=== PATIENT | male | born 2005 | race Caucasian/White ===

== ENCOUNTER 2025-05-24 10:44 | Emergency (ER) | payer OTHER, SELFPAY ==
[2025-05-24] MEDS ORDERED: Lidocaine 1% (PF) 30 ML VIAL ONE (11:32)
[2025-05-24] MEDS ORDERED: Bacitracin 1 PK ONE (12:54)
== END 2025-05-24 13:00 | disposition home or self-care (01) ==
LOC: CSHERS 10:44
DX: S91.311A Laceration without foreign body, right foot, initial encounter (principal); W26.8XXA Contact with other sharp object(s), not elsewhere classified, initial encounter
CPT/HCPCS: 12001; 99283; J2003